=== PATIENT | female | born 1980 | race Caucasian/White ===

== ENCOUNTER 2018-08-01 05:16 | Emergency (ER) | payer SELFPAY ==
--- NOTE | 2018-08-01 08:21 | RAD ---
AP CHEST: History: Chest pain. Date: 08-01-18 FINDINGS: The lungs are well aerated. No evidence of active intrathoracic disease seen. No evidence of effusion s, pneumonia, or pneumothorax seen. IMPRESSION: Unremarkable AP view chest. POS: [facility]
== END 2018-08-01 05:47 | disposition home or self-care (01) ==
LOC: ERS 05:16
DX: R07.89 Other chest pain (principal); K04.7 Periapical abscess without sinus; K02.9 Dental caries, unspecified; E03.9 Hypothyroidism, unspecified; G43.909 Migraine, unspecified, not intractable, without status migrainosus; F31.9 Bipolar disorder, unspecified; F17.210 Nicotine dependence, cigarettes, uncomplicated; Z79.899 Other long term (current) drug therapy
CPT/HCPCS: 71045; 93005

== ENCOUNTER 2018-09-12 16:12 | Emergency (ER) | payer SELFPAY | END 2018-09-12 16:23 | disposition left against medical advice (07) | LOC: ERS 16:12 | DX: Z53.21 Procedure and treatment not carried out due to patient leaving prior to being seen by health care provider (principal) ==

== ENCOUNTER 2020-04-13 02:37 | Emergency (ER) | payer SELFPAY ==
[2020-04-13] MEDS ORDERED: Ketorolac Tromethamine 30 MG/ML VIAL ONE (03:02)
[2020-04-13 03:11] LABS: Bilirubin Negative (Negative); Blood, Urine Negative (Negative); Clarity Clear (Clear); Glucose, Urine (Dipstick) Normal (Negative); Ketone, Urine Negative (Negative); Leukocyte Negative Leu/uL (Negative); Nitrite Negative (Negative); Protein, Urine (Dipstick) 20 mg/dL (Neg-Trace); Specific Gravity, Urine 1.028 (1.002-1.036); Urobilinogen Normal mg/dL (Less than 2); pH, Urine 5.5 (5.0-9.0)
[2020-04-13 03:12] LABS: Pregnancy Test - Urine (BHCG) Negative (Negative); Pregu Control Background? CLEAR/WHITE (CLR/WHITE); Pregu Control Bar Appear? YES (CONTROL BAR); Specific Gravity 1.028 (1.002-1.036)
--- NOTE | 2020-04-13 08:02 | CT ---
PRELIMINARY REPORT/[facility]/EMERGENCY AFTER HOURS PROCEDURE: EXAM: CT Abdomen and Pelvis Without Intravenous Contrast CLINICAL HISTORY: Patient here for evaluation of right flank pain. Patient states that the pain started on Saturday or . Thought that it was just musculoskeletal pain but then got concerned that might be something more significant when [id number] pain medication was not helping it. States that it was radiati ng down to her hip but the hip pain is gone. TECHNIQUE: Axial computed tomography images of the abdomen and pelvis without intravenous contrast. CONTRAST: None. COMPARISON: None provided. FINDINGS: LUNG BASES: Subsegmental atelectasis at the lung bases. LIVER: The liver is mildly enlarged measuring up to 17.4 m in craniocaudal dimension. GALLBLADDER AND BILE DUCTS: The gallbladder is contracted. PANCREAS: Unremarkable. SPLEEN: Unremarkable. ADRENAL GLANDS: Unremarkable. KIDNEYS, URETERS, AND BLADDER: There is free fluid and fat stranding surrounding the inferior aspect of the right kidney and proxima l right ureter with minimal fullness of the right ureter to the level of the mid abdomen. No definite ureteral stone visualized. Calcifications in the pelvis likely represent phleboliths. The ureter m ay be compressed secondary to the enlarged uterus, however a superimposed ascending urinary tract inf ection cannot be excluded. STOMACH AND BOWEL: No obstruction. No wall thickening. No CT evidence of colitis or acute diverticulitis. APPENDIX: Normal appendix. PERITONEUM: No free fluid. No free air. LYMPH NODES: No lymphadenopathy. REPRODUCTIVE: Enlarged uterus likely secondary to underlying fibroids. VASCULATURE: No aortic aneurysm. ABDOMINAL WALL AND SOFT TISSUES: Unremarkable. BONES: No fracture or suspicious osseous abnormality. IMPRESSION: Enlarged uterus likely secondary to underlying fibroids. There is free fluid and fat stranding surrounding the inferior aspect of the right kidney and proxima l right ureter with minimal fullness of the right ureter to the level of the mid abdomen. No definite ureteral stone visualized. The ureter may be compressed secondary to the enlarged uterus, however a superimposed ascending urinary tract infection cannot be excluded. ELECTRONICALLY SIGNED BY: Brianna Figueroa MD Apr 13, 2020 4:10:53 AM [employer] This report is intended for review by the ordering physician only, in accordance of law. If you recei ve this report in error, please call [facility] at [phone]. FINAL REPORT EMERGENT AFTER HOURS CT OF THE ABDOMEN AND PELVIS WITHOUT CONTRAST: FINDINGS/IMPRESSION: I agree with the findings and impression given in the preliminary report per [facility] physici an. 1. There is enlargement of the right ureter and stranding changes surrounding the ureter concerning for pyelonephritis and ascending urinary tract infection. 2. The uterus is enlarged likely secondary to uterine fibroids. POS: OFF
== END 2020-04-13 04:38 | disposition home or self-care (01) ==
LOC: ERS 02:37
DX: D25.9 Leiomyoma of uterus, unspecified (principal); J45.909 Unspecified asthma, uncomplicated; F31.9 Bipolar disorder, unspecified
CPT/HCPCS: 74176; 81003; 81025; 96372; J1885